=== PATIENT | male | born 2000 | race Caucasian/White ===

== ENCOUNTER 2021-12-18 21:10 | Emergency (ER) | payer BC ==
[~2021-12-18] VITALS: Ht 172.7 cm; Wt 75.0 kg
[2021-12-18 23:37] VITALS: BP 106/61; PULSE 121
== END 2021-12-18 23:37 | disposition home or self-care (01) ==
LOC: COL.ER 21:10
DX: F12.929 Cannabis use, unspecified with intoxication, unspecified (principal)
CPT/HCPCS: J7030